=== PATIENT | male | born 1990 | race Two or more races ===

== ENCOUNTER 2018-07-15 13:21 | Emergency (ER) | payer MEDICAID ==
[~2018-07-15] VITALS: Ht 170.2 cm; Wt 77.1 kg
[2018-07-15] MEDS ORDERED: PANTOPRAZOLE 40 MG/10 ML VIAL IV STA (13:57)
[2018-07-15] MEDS ORDERED: SODIUM CHLORIDE 0.9% 1,000 ML IVB ONE (13:57)
[2018-07-15] MEDS ORDERED: PROCHLORPERAZINE EDISYLATE 5 MG/ML 2ML VIAL IV ONE (14:00)
[2018-07-15] MEDS ORDERED: MORPHINE SULFATE 4 MG/ML SYR/VIAL IV ONE (14:00)
[2018-07-15 14:08] LABS: Basophils # (auto) 0 uL; Basophils % (auto) 0.6 % (0.0-2.0); Eosinophils # (auto) 0 uL; Eosinophils % (auto) 0.4 % (0.0-7.0); Hematocrit 47.6 % (41.0-53.0); Hemoglobin 16.3 g/dL (13.5-17.5); Lymphocytes % (auto) 23.8 % (10.0-50.0); Mean Corpuscular Hemoglobin 30.8 pg (28.0-32.0); Mean Corpuscular Hgb Conc. 34.2 g/dL (32.0-36.0); Mean Corpuscular Volume 90.1 fL (80.0-100.0); Monocytes # (auto) 0.5 uL; Monocytes % (auto) 6.1 % (0.0-12.0); Neutrophils # (auto) 5.7 uL; Neutrophils % (auto) 69.1 % (37.0-80.0); Nucleated Red Blood Cells % 0.1 %; Platelet Count (auto) 297 10^3/uL (140-450); Red Blood Cells 5.28 10^6/uL (4.5-5.90); Red Cell Distribution Width 12.5 % (11.8-14.3); White Blood Cell 8.3 10^3/uL (4.4-10.8)
[2018-07-15 14:11] LABS: Urine Bacteria NONE SEEN /hpf (None Seen); Urine Blood Negative /uL (Negative); Urine Mucus FEW (None Seen); Urine WBC 2 /hpf (0 - 3)
[2018-07-15 14:26] LABS: Albumin 4.8 g/dL (3.4-5.0); Calcium 9.1 mg/dL (8.5-10.1); Potassium 3.6 mmol/L (3.5-5.1)
[2018-07-15 14:29] LABS: BUN/Creatinine Ratio 15.8; Total Protein 7.9 g/dL (6.4-8.2)
[2018-07-15 14:46] LABS: Amphetamine Screen, Urine NEGATIVE (NEGATIVE); Barbiturate Scree,Urine NEGATIVE (NEGATIVE); Benzodiazephine Screen, Urine POSITIVE (NEGATIVE); Cannabinoid Screen, Urine POSITIVE (NEGATIVE); Cocaine Screen, Urine POSITIVE (NEGATIVE); Opiate Scree,Urine POSITIVE (NEGATIVE); Phencyclidine Screen, Urine NEGATIVE (NEGATIVE)
[2018-07-15 15:52] VITALS: BP 115/89
== END 2018-07-15 16:03 | disposition home or self-care (01) ==
LOC: ER 13:23
DX: K29.70 Gastritis, unspecified, without bleeding (principal); F12.188 Cannabis abuse with other cannabis-induced disorder; F17.210 Nicotine dependence, cigarettes, uncomplicated
CPT/HCPCS: 36415; 80053; 80307; 81001; 83690; 85025; 96361; 96374; 96375; 99283; C9113; J0780; J2270; J7030